=== PATIENT | male | born 1985 | race Caucasian/White ===

== ENCOUNTER 2017-05-26 20:46 | Emergency (ER) | payer MEDICAID ==
[~2017-05-26] VITALS: Ht 195.6 cm; Wt 131.1 kg
[2017-05-26 20:47] VITALS: BP 156/98
== END 2017-05-26 21:21 | disposition home or self-care (01) ==
LOC: ER 20:48
DX: R05 Cough (principal); J45.909 Unspecified asthma, uncomplicated
CPT/HCPCS: 99283; A4606; Z7610